=== PATIENT | male | born 1965 | race Caucasian/White ===

== ENCOUNTER 2020-12-31 17:54 | Emergency (ER) | payer BC ==
[~2020-12-31] VITALS: Ht 190.5 cm; Wt 89.0 kg
[2020-12-31 18:17] VITALS: BP 135/81
[2020-12-31] MEDS ORDERED: P50 MT (19:33)
== END 2020-12-31 20:04 | disposition home or self-care (01) ==
LOC: ER 17:54
DX: R21 Rash and other nonspecific skin eruption (principal); E11.9 Type 2 diabetes mellitus without complications
CPT/HCPCS: 99282; 99283

== ENCOUNTER 2021-01-08 07:35 | Inpatient (IN) | payer SELFPAY ==
[~2021-01-08] VITALS: Ht 190.5 cm; Wt 103.4 kg
[~2021-01-08 07:35] MED LIST: P50 MT
[2021-01-08] MEDS ORDERED: NITROGLYCERIN 0.4MG TABLET SL SL PRN (08:00)
[2021-01-08] MEDS ORDERED: ASPIRIN 81MG TABLET PO ONE (08:00)
[2021-01-08] MEDS ORDERED: ONDANSETRON HCL 4MG/2ML INJ IV STA (08:00)
[2021-01-08 08:35] LABS: BASOPHILS % 0.5 % (0.0-2.0); CHLORIDE 100 mEq/L (98-107); HEMOGLOBIN. 13.4 g/dL (14.0-18.0); LYMPHOCYTES % 27.5 % (20.0-50.0); MEAN CORPUSCULAR HEMOGLOBIN 29.1 pg (28.0-32.0); MEAN CORPUSCULAR VOLUME 86.6 fL (80.0-94.0); MEAN PLATELET VOLUME 8.4 fl (7.4-10.4); MONOCYTES % 4.4 % (2.0-8.0); NEUTROPHILS % 66.6 % (40.0-76.0); PLATELET 362 x1000/uL (130-400); RED BLOOD CELL COUNT 4.62 mill/uL (4.7-6.1); RED CELL DISTRIBUTION WIDTH 13.7 % (11.6-14.6)
[2021-01-08] MEDS ORDERED: DOCUSATE SODIUM 100MG CAPSULE PO PRN (17:00)
[2021-01-08] MEDS ORDERED: ACETAMINOPHEN 325MG TABLET PO PRN (17:00)
[2021-01-08] MEDS ORDERED: HYDROCODONE/ACETAMINOPHEN 5/325MG TABLET PO PRN (17:00)
[2021-01-08] MEDS ORDERED: ONDANSETRON HCL 4MG/2ML INJ IV PRN (17:00)
[2021-01-08] MEDS ORDERED: MAGNESIUM/ALUMINUM HYDROXIDE/SIMETHICONE 30ML UDC PO PRN (17:00)
[2021-01-08] MEDS ORDERED: HYDRALAZINE 20MG/ML VIAL IV PRN (17:00)
[2021-01-08] MEDS ORDERED: CLONIDINE 0.1MG TABLET PO PRN (17:00)
[2021-01-08] MEDS ORDERED: IPRATROPIUM/ALBUTEROL 0.5-3(2.5)MG/3ML NEB HHN PRN (17:00)
[2021-01-08] MEDS ORDERED: DEXTROSE 50% WATER 50ML SYRINGE IV PRN (17:00)
[2021-01-08] MEDS ORDERED: GUAIFENESIN 200MG/10ML SUGAR FREE UDC PO PRN (17:00)
[2021-01-08] MEDS ORDERED: LORAZEPAM 2MG/ML CPJ IV PRN (17:00)
[2021-01-08] MEDS ORDERED: MORPHINE SULFATE 2 MG/ML CPJ (NOT FOR IM USE) IV PRN (17:00)
[2021-01-08 17:18] VITALS: BP 128/81
[2021-01-08 17:30] VITALS: BP 128/81
[2021-01-08] MEDS ORDERED: LIP40 MT (17:33)
[2021-01-08] MEDS ORDERED: METF-874 MT (17:33)
[2021-01-08] MEDS ORDERED: ASPI-1497 MT (17:33)
[2021-01-08] MEDS: INSULIN LISPRO 100 UNITS/ML SUBCUT SCH ×2 (17:47→20:53)
[2021-01-08] MEDS: BLOOD SUGAR DIAGNOSTIC STRIP TEST SCH ×2 (17:47→20:22)
[2021-01-08] MEDS: ENOXAPARIN 30MG/0.3ML SYR SUBCUT SCH (17:50)
[2021-01-08] MEDS ORDERED: POTASSIUM CHLORIDE 20MEQ TABLET SR PO NR (18:15)
[2021-01-08 19:53] LABS: CLARITY URINE CLEAR (CLEAR); COLOR URINE YELLOW (YELLOW); KETONES URINE TRACE (NEGATIVE); LEUKOCYTE ESTERASE URINE NEGATIVE (NEGATIVE); NITRITE URINE NEGATIVE (NEGATIVE); OCCULT BLOOD URINE NEGATIVE (NEGATIVE); PH URINE 7.5 (4.5-8.0); PROTEIN URINE NEGATIVE (NEGATIVE); SPECIFIC GRAVITY URINE 1.021 (1.005-1.030); UROBILINOGEN URINE 0.2 E.U./dL (0.2-1.0)
[2021-01-08 20:00] VITALS: BP 137/72
[2021-01-08] MEDS ORDERED: THROAT LOZENGES-BENZOCAINE/MENTH/CETYLPYRD CL LOZENGES MM PRN (20:00)
[2021-01-08 20:10] LABS: *BARBITURATES SCREEN URINE NEGATIVE (NEGATIVE)
[2021-01-08 20:11] LABS: *AMPHETAMINES SCREEN URINE NEGATIVE (NEGATIVE); *BENZODIAZEPINES SCREEN URINE NEGATIVE (NEGATIVE); METHADONE URINE SCREEN NEGATIVE (NEGATIVE); OPIATES URINE SCREEN NEGATIVE (NEGATIVE); PHENCYCLIDINE URINE SCREEN NEGATIVE (NEGATIVE)
[2021-01-08 20:12] LABS: *COCAINE SCREEN URINE NEGATIVE (NEGATIVE); CANNABINOID URINE SCREEN PRESUMTIVE POSITIVE (NEGATIVE)
[2021-01-08] MEDS: SODIUM CHLORIDE 0.9% INJ 3ML FLUSH IVF SCH (20:22)
[2021-01-08] MEDS: DIPHENHYDRAMINE 50MG/ML VIAL IV PRN (20:22)
[2021-01-08 23:33] LABS: CREATINE KINASE 68 IU/L (39-308)
[2021-01-08 23:34] LABS: CREATINE KINASE MB FRACTION < 1.0 ng/mL (0.5-3.6)
[2021-01-09] VITALS: BP 141/80
[2021-01-09 04:00] VITALS: BP 126/75
[2021-01-09] MEDS: ENOXAPARIN 30MG/0.3ML SYR SUBCUT SCH ×2 (06:00→06:47)
[2021-01-09] MEDS: SODIUM CHLORIDE 0.9% INJ 3ML FLUSH IVF SCH ×3 (06:47→22:35)
[2021-01-09] MEDS: BLOOD SUGAR DIAGNOSTIC STRIP TEST SCH ×4 (06:47→20:27)
[2021-01-09 06:57] LABS: BASOPHILS % 0.2 % (0.0-2.0); EOSINOPHILS % 0.4 % (0.0-5.0); HEMATOCRIT. 41.5 % (42.0-52.0); HEMOGLOBIN. 13.7 g/dL (14.0-18.0); LYMPHOCYTES % 22.8 % (20.0-50.0); MEAN CORPUSCULAR HEMOGLOBIN 28.8 pg (28.0-32.0); MEAN CORPUSCULAR VOLUME 87.4 fL (80.0-94.0); MEAN PLATELET VOLUME 8.5 fl (7.4-10.4); MONOCYTES % 3.7 % (2.0-8.0); NEUTROPHILS % 72.9 % (40.0-76.0); PLATELET 362 x1000/uL (130-400); RED BLOOD CELL COUNT 4.75 mill/uL (4.7-6.1); RED CELL DISTRIBUTION WIDTH 13.6 % (11.6-14.6)
[2021-01-09 07:05] LABS: CHLORIDE 100 mEq/L (98-107)
[2021-01-09] MEDS: INSULIN LISPRO 100 UNITS/ML SUBCUT SCH ×4 (07:06→20:30)
[2021-01-09 07:20] LABS: CREATINE KINASE 55 IU/L (39-308)
[2021-01-09 07:24] LABS: CREATINE KINASE MB FRACTION < 1.0 ng/mL (0.5-3.6)
[2021-01-09 08:00] VITALS: BP 131/77
[2021-01-09] MEDS: DIPHENHYDRAMINE 50MG/ML VIAL IV PRN ×2 (08:41→23:17)
[2021-01-09] MEDS ORDERED: REGADENOSON 0.4 MG/5 ML IV SCH (09:00)
[2021-01-09 11:38] LABS: T4 FREE 1.09 ng/dL (0.76-1.46)
[2021-01-09 12:00] VITALS: BP 115/90
[2021-01-09 16:00] VITALS: BP 115/82
[2021-01-09 16:58] LABS: CREATINE KINASE 48 IU/L (39-308)
[2021-01-09 17:01] LABS: CREATINE KINASE MB FRACTION < 1.0 ng/mL (0.5-3.6)
[2021-01-09 20:00] VITALS: BP 119/73
[2021-01-10] VITALS: BP 110/75
[2021-01-10 00:52] LABS: CREATINE KINASE 46 IU/L (39-308)
[2021-01-10 00:53] LABS: CREATINE KINASE MB FRACTION < 1.0 ng/mL (0.5-3.6)
[2021-01-10 04:00] VITALS: BP 110/76
[2021-01-10] MEDS: SODIUM CHLORIDE 0.9% INJ 3ML FLUSH IVF SCH ×2 (05:11→13:40)
[2021-01-10] MEDS: BLOOD SUGAR DIAGNOSTIC STRIP TEST SCH ×2 (06:19→11:32)
[2021-01-10] MEDS: INSULIN LISPRO 100 UNITS/ML SUBCUT SCH ×2 (06:20→11:53)
[2021-01-10] MEDS: DIPHENHYDRAMINE 50MG/ML VIAL IV PRN ×2 (06:33→11:52)
[2021-01-10 06:46] LABS: BASOPHILS % 0.3 % (0.0-2.0); EOSINOPHILS % 1.3 % (0.0-5.0); HEMOGLOBIN. 13.7 g/dL (14.0-18.0); LYMPHOCYTES % 30.1 % (20.0-50.0); MEAN CORPUSCULAR HEMOGLOBIN 28.9 pg (28.0-32.0); MEAN CORPUSCULAR VOLUME 86.7 fL (80.0-94.0); MEAN PLATELET VOLUME 8.5 fl (7.4-10.4); MONOCYTES % 4.6 % (2.0-8.0); NEUTROPHILS % 63.7 % (40.0-76.0); PLATELET 359 x1000/uL (130-400); RED BLOOD CELL COUNT 4.73 mill/uL (4.7-6.1); RED CELL DISTRIBUTION WIDTH 13.5 % (11.6-14.6)
[2021-01-10 07:00] LABS: CHLORIDE 100 mEq/L (98-107)
[2021-01-10 07:09] LABS: CREATINE KINASE 40 IU/L (39-308)
[2021-01-10 07:10] LABS: CREATINE KINASE MB FRACTION < 1.0 ng/mL (0.5-3.6)
[2021-01-10 08:00] VITALS: BP 124/68
[2021-01-10] MEDS ORDERED: ENOXAPARIN 40MG/0.4ML SYR SUBCUT SCH (09:00)
[2021-01-10 12:00] VITALS: BP 109/74
[2021-01-10 12:58] VITALS: BP 109/74
== END 2021-01-10 15:00 | disposition home or self-care (01) | DRG 198 ==
LOC: ER 07:35 → 5WST 13:22 → CANRESERV 14:38 → ENRESERV 14:38
PROVIDERS: ADMIT Internal Medicine; ATTEND Internal Medicine
DX: R07.89 Other chest pain (principal); I25.10 Atherosclerotic heart disease of native coronary artery without angina pectoris; R65.10 Systemic inflammatory response syndrome (SIRS) of non-infectious origin without acute organ dysfunction; E11.9 Type 2 diabetes mellitus without complications; E78.5 Hyperlipidemia, unspecified; Z20.822 Contact with and (suspected) exposure to COVID-19; I10 Essential (primary) hypertension; Z95.5 Presence of coronary angioplasty implant and graft; Z79.899 Other long term (current) drug therapy; Z79.82 Long term (current) use of aspirin
CPT/HCPCS: 36415; 71045; 78452; 80048; 80053; 80061; 80305; 81003; 82550; 82553; 82962; 83036; 83880; 84439; 84443; 84484; 85025; 85379; 87426; 93005; 93017; 93306; 93970; 99285; A9500; J1200; J1650; J1815; J2405

== ENCOUNTER 2021-03-22 07:09 | Emergency (ER) | payer MEDICAID ==
[~2021-03-22] VITALS: Ht 190.5 cm; Wt 102.0 kg
[~2021-03-22 07:09] MED LIST changes: +ASPI-1497 MT; +LIP40 MT; +METF-874 MT; -P50 MT
[2021-03-22] MEDS ORDERED: LIDOCAINE HCL/PF 1% 2ML VIAL ONE (07:37)
[2021-03-22] MEDS ORDERED: ACETAMINOPHEN 325MG TABLET PO STA (07:37)
[2021-03-22 08:02] LABS: BASOPHILS % 0.3 % (0.0-2.0); HEMATOCRIT. 41.3 % (42.0-52.0); HEMOGLOBIN. 13.7 g/dL (14.0-18.0); LYMPHOCYTES % 7.5 % (20.0-50.0); MEAN CORPUSCULAR HEMOGLOBIN 28.3 pg (28.0-32.0); MEAN CORPUSCULAR VOLUME 85.2 fL (80.0-94.0); MEAN PLATELET VOLUME 8.5 fl (7.4-10.4); MONOCYTES % 5.3 % (2.0-8.0); NEUTROPHILS % 86.9 % (40.0-76.0); PLATELET 249 x1000/uL (130-400); RED BLOOD CELL COUNT 4.85 mill/uL (4.7-6.1); RED CELL DISTRIBUTION WIDTH 14.3 % (11.6-14.6)
[2021-03-22 08:03] LABS: CHLORIDE 98 mEq/L (98-107)
[2021-03-22 09:19] LABS: BG BASE EXCESS 2.1 mmol/L (-2.0-2.0); BG CARBOXYHEMOGLOBIN 0.6 % (0.5-1.5); BG DEOXYHEMOGLOBIN 3.1 % (0.0-5.0); BG FRACTION INSPIRED OXYGEN 21; BG HCO3 ACT 24.9 mmol/L (22.0-26.0); BG OXYGEN SATURATION 96.9 % (92.0-98.5); BG OXYHEMOGLOBIN 96.3 % (94.0-97.0); BG PCO2 33.2 mmHg (35.0-45.0); BG PH 7.493 (7.350-7.450); BG PO2 83.9 mmHg (75.0-100.0); BG SAMPLE SITE RIGHT RADIAL; BG TOTAL HEMOGLOBIN 13.7 g/dL (12.0-18.0); BG VENT MODE ROOM AIR
[2021-03-22] MEDS ORDERED: TOPUD PO (09:24)
[2021-03-22 09:45] VITALS: BP 139/87
== END 2021-03-22 09:48 | disposition home or self-care (01) ==
LOC: ER 07:45 → EDBD 07:45 → EDUNIT# 07:45 → ER 09:48
DX: R06.02 Shortness of breath (principal); R53.1 Weakness; R50.9 Fever, unspecified; E11.9 Type 2 diabetes mellitus without complications; Z79.899 Other long term (current) drug therapy; Z20.822 Contact with and (suspected) exposure to COVID-19
CPT/HCPCS: 36415; 36600; 71045; 80053; 82375; 82805; 85025; 87040; 99284; C9803; J3490; U0003; U0005